=== PATIENT | female | born 1965 | race African-American/Black ===

== ENCOUNTER 2016-04-28 12:21 | Emergency (ER) | payer MEDICAID ==
[~2016-04-28] VITALS: Ht 177.8 cm; Wt 113.4 kg
[~2016-04-28 12:21] MED LIST: ALBU18; AMLO5TAB2 PO; AMOX500C2; ASPI81TA27 PO; BACL10TA; GUAISYP5; IPRAAER6; IPRIH; METR250T; NOR10T PO; PAR20T PO; TRAM50TA2 PO; [UNRECOGNIZED DRUG - CODE] PO
[2016-04-28 12:33] VITALS: BP 142/86
[2016-04-28] MEDS ORDERED: KETOROLAC TROMETH 60MG/2ML VIAL IM ONE (13:30)
== END 2016-04-28 13:59 | disposition home or self-care (01) ==
LOC: EDBD 12:21 → ER 12:21
DX: S30.860A Insect bite (nonvenomous) of lower back and pelvis, initial encounter (principal); S20.369A Insect bite (nonvenomous) of unspecified front wall of thorax, initial encounter; S10.96XA Insect bite of unspecified part of neck, initial encounter; B99.9 Unspecified infectious disease; E11.9 Type 2 diabetes mellitus without complications; I10 Essential (primary) hypertension; F17.210 Nicotine dependence, cigarettes, uncomplicated; W57.XXXA Bitten or stung by nonvenomous insect and other nonvenomous arthropods, initial encounter; Y93.89 Activity, other specified; Y99.8 Other external cause status; Y92.89 Other specified places as the place of occurrence of the external cause
CPT/HCPCS: 96372; 99283; J1885